=== PATIENT | female | born 1990 | race Caucasian/White ===

== ENCOUNTER 2016-11-10 16:34 | Emergency (ER) | payer MEDICAID ==
[~2016-11-10] VITALS: Ht 154.9 cm; Wt 66.7 kg
[2016-11-10 17:14] VITALS: BP 102/71; PULSE 66; RESP 18; TEMP 98.3; O2SAT 100
[2016-11-10 18:15] LABS: BILIRUBIN,URINE NEGATIVE (NEGATIVE); BLOOD, URINE NEGATIVE (NEGATIVE); CLARITY/URINE CLEAR (CLEAR); COLOR,URINE YELLOW (YELLOW); GLUCOSE,URINE NEGATIVE (NEGATIVE); KETONES,URINE NEGATIVE (NEGATIVE); LEUKOCYTE ESTERASE ,URINE NEGATIVE (NEGATIVE); NITRITE, URINE NEGATIVE (NEGATIVE); PH,URINE 5.5 (5.0-8.0); PROTEIN URINE NEGATIVE (NEGATIVE); UROBILINOGEN,URINE 0.2 (0.2-1.0)
--- NOTE | 2016-11-10 19:50 | NUR ---
Pt presents to ED with c/o LLQ abdominal pain 04/07, pt stated she's not on period, and has vaginal bleeding 3 pads/day. A&Ox4, denies SOB or chestpain, denies N/V/D. SKin intact. Bowel sounds x4. Will continue to monitor
--- NOTE | 2016-11-10 19:55 | NUR ---
at bedside examining pt
[2016-11-10] MEDS ORDERED: KETOROLAC TROMETHAMINE 60 MG/2 ML VIAL IM ONE (20:00)
--- NOTE | 2016-11-10 20:15 | NUR ---
Pt taken off ED for ultrasound by radiologist
--- NOTE | 2016-11-10 21:21 | NUR ---
pt returned to ED
[2016-11-10 21:30] VITALS: BP 106/72; PULSE 68; RESP 18; TEMP 98.3; O2SAT 100
--- NOTE | 2016-11-10 21:30 | NUR ---
Patient given written and verbal discharge instructions and verbalizes understanding. ER MD Badillo discussed with patient the results and treatment provided. Patient in stable condition. ID arm band removed. Rx of motrin and norco given. Patient educated on pain management and to follow up with PMD. Pain Scale 2/10 Opportunity for questions provided and answered.
== END 2016-11-10 21:30 | disposition home or self-care (01) ==
LOC: SED 16:34
DX: R10.32 Left lower quadrant pain (principal); N93.9 Abnormal uterine and vaginal bleeding, unspecified; Z88.2 Allergy status to sulfonamides; Z88.1 Allergy status to other antibiotic agents
CPT/HCPCS: 76856; 81003; 81025; 96372; 99285; J1885

== ENCOUNTER 2017-04-10 17:49 | Emergency (ER) | payer MEDICAID ==
[~2017-04-10] VITALS: Ht 154.9 cm; Wt 72.6 kg
[2017-04-10 17:50] VITALS: BP_SYST 121
[2017-04-10 19:17] LABS: BILIRUBIN,URINE NEGATIVE (NEGATIVE); BLOOD, URINE NEGATIVE (NEGATIVE); CLARITY/URINE CLEAR (CLEAR); COLOR,URINE YELLOW (YELLOW); GLUCOSE,URINE NEGATIVE (NEGATIVE); KETONES,URINE NEGATIVE (NEGATIVE); LEUKOCYTE ESTERASE ,URINE NEGATIVE (NEGATIVE); NITRITE, URINE NEGATIVE (NEGATIVE); PH,URINE 7.5 (5.0-8.0); PROTEIN URINE NEGATIVE (NEGATIVE)
[2017-04-10 19:52] LABS: CALCIUM 9.3 mg/dL (8.4-11.0); CREATININE 0.89 mg/dL (0.55-1.30); POTASSIUM 3.6 mmol/L (3.5-5.1)
[2017-04-10 19:55] LABS: HEMATOCRIT 34.5 % (36-48); HEMOGLOBIN 11.6 g/dL (12.0-16.0); MEAN CORPUSCULAR HEMOGLOBIN 31 pg (27-31); MEAN CORPUSCULAR HGB CONC 34 % (32-36); MEAN CORPUSCULAR VOLUME 92 fL (79.0-98.0); PLATELET COUNT (AUTO) 163 K/uL (130-430); RED BLOOD CELL COUNT(AUTO) 3.74 MIL/uL (4.2-6.2); RED CELL DISTRIBUTION WIDTH 12.3 % (9.0-15.0); WHITE BLOOD COUNT (AUTO) 7.4 K/uL (4.8-10.8)
[2017-04-10 19:56] LABS: ALBUMIN 3.7 g/dL (3.4-4.8); TOTAL BILIRUBIN 0.3 mg/dL (0.0-1.0)
[2017-04-10] MEDS ORDERED: KETOROLAC TROMETHAMINE 60 MG/2 ML VIAL IM ONE (20:00)
[2017-04-10 20:01] LABS: BAND % (MANUAL) 2 % (0-6); LYMPHOCYTES % (MANUAL) 10 % (20-46)
[2017-04-10 20:02] LABS: BASOPHILS % (MANUAL) 0 % (0-2); EOSINOPHILS % (MANUAL) 0 % (0-7); MONOCYTES % (MANUAL) 8 % (0-11)
[2017-04-10] MEDS ORDERED: PROCHLORPERAZINE EDISYLATE 10 MG/2 ML VIAL IVP ONE (20:30)
[2017-04-10] MEDS ORDERED: NACL 0.9% 1,000 ML IV ONE (20:30)
[2017-04-10] MEDS ORDERED: MAGNESIUM CITRATE 300 ML ORAL SOLUTION PO ONE (21:45)
[2017-04-10 22:51] VITALS: BP_SYST 123
== END 2017-04-10 22:51 | disposition home or self-care (01) ==
LOC: SED 17:49
DX: D64.9 Anemia, unspecified (principal); K64.8 Other hemorrhoids; K21.9 Gastro-esophageal reflux disease without esophagitis; Z88.2 Allergy status to sulfonamides; Z88.1 Allergy status to other antibiotic agents
CPT/HCPCS: 36415; 74000; 80053; 81003; 81025; 82272; 83690; 85007; 85027; 96361; 96372; 96374; 99285; J0780; J1885; J7030

== ENCOUNTER 2019-10-27 12:44 | Emergency (ER) | payer MEDICAID ==
[~2019-10-27] VITALS: Ht 154.9 cm; Wt 77.1 kg
[2019-10-27 12:48] VITALS: BP_SYST 116
--- NOTE | 2019-10-27 12:48 | NUR ---
Patient to ER bed 7 to gown for evaluation. Side rails up. Report given to JC Cunha.
--- NOTE | 2019-10-27 13:00 | NUR ---
pt arrived w/ c/o left arm pain. Pt was at a training session w/ her dog when she was dropped on the floor by her dog
--- NOTE | 2019-10-27 13:08 | NUR ---
ER at bedside examining patient.
--- NOTE | 2019-10-27 13:10 | NUR ---
p pt getting an x-ray at the bedside
--- NOTE | 2019-10-27 13:50 | NUR ---
medicated the pt w/ Motrin. Will reassess
[2019-10-27] MEDS ORDERED: IBUPROFEN 800 MG TABLET PO ONE (14:00)
[2019-10-27 14:01] VITALS: BP_SYST 116
--- NOTE | 2019-10-27 14:02 | NUR ---
Patient given written and verbal discharge instructions and verbalizes understanding. ER MD discussed with patient the results and treatment provided. Patient in stable condition. ID arm band removed. Rx of Motrin given. Patient educated on pain management and to follow up with PMD. Pain Scale 3/10 Opportunity for questions provided and answered. Medication side effect fact sheet provided.
== END 2019-10-27 14:01 | disposition home or self-care (01) ==
LOC: SED 12:44
DX: S62.512A Displaced fracture of proximal phalanx of left thumb, initial encounter for closed fracture (principal); K21.9 Gastro-esophageal reflux disease without esophagitis; Z88.2 Allergy status to sulfonamides; W18.39XA Other fall on same level, initial encounter; Y93.89 Activity, other specified; Y92.89 Other specified places as the place of occurrence of the external cause; Y99.8 Other external cause status
CPT/HCPCS: 99283